=== PATIENT | female | born 1960 | race Two or more races ===

== ENCOUNTER → 2018-04-04 06:42 | Outpatient (CLI) | payer OTHER | END | disposition home or self-care (01) | LOC: LAB 06:42 | DX: I11.0 Hypertensive heart disease with heart failure (principal); D53.8 Other specified nutritional anemias; N39.0 Urinary tract infection, site not specified; E11.9 Type 2 diabetes mellitus without complications; E04.2 Nontoxic multinodular goiter; N36.2 Urethral caruncle ==

== ENCOUNTER 2018-04-15 07:11 | Outpatient (CLI) | payer OTHER | END 2018-04-15 07:25 | disposition home or self-care (01) | LOC: SONOGRAMA 07:11 → MAMO-SONO 08:15 | DX: E04.1 Nontoxic single thyroid nodule (principal) ==

== ENCOUNTER 2018-09-05 08:29 | Outpatient (CLI) | payer OTHER | END 2018-09-05 08:36 | disposition home or self-care (01) | LOC: LAB 08:29 | DX: E04.0 Nontoxic diffuse goiter (principal); E11.9 Type 2 diabetes mellitus without complications; E55.9 Vitamin D deficiency, unspecified ==

== ENCOUNTER 2019-02-27 07:26 | Outpatient (CLI) | payer OTHER | END 2019-02-27 08:05 | disposition home or self-care (01) | LOC: LAB 07:26 | DX: N39.0 Urinary tract infection, site not specified (principal); E78.2 Mixed hyperlipidemia; E11.9 Type 2 diabetes mellitus without complications; D53.8 Other specified nutritional anemias; I11.0 Hypertensive heart disease with heart failure; E04.0 Nontoxic diffuse goiter ==

== ENCOUNTER → 2019-02-28 | Outpatient (CLI) | payer OTHER | END | disposition home or self-care (01) | LOC: SONOGRAMA 08:17 | DX: E04.1 Nontoxic single thyroid nodule (principal) ==

== ENCOUNTER 2019-03-06 11:37 | Outpatient (CLI) | payer OTHER | END 2019-03-06 17:00 | disposition home or self-care (01) | LOC: TOM 11:37 | DX: N28.1 Cyst of kidney, acquired (principal); N18.1 Chronic kidney disease, stage 1; Z12.9 Encounter for screening for malignant neoplasm, site unspecified ==

== ENCOUNTER 2020-07-15 06:38 | Outpatient (CLI) | payer OTHER | END 2020-07-15 06:47 | disposition home or self-care (01) | LOC: LAB 06:38 | PROVIDERS: ATTEND Internal Medicine Endocrinology, Diabetes & Metabolism | DX: D53.8 Other specified nutritional anemias (principal); N39.0 Urinary tract infection, site not specified; I11.0 Hypertensive heart disease with heart failure; E78.2 Mixed hyperlipidemia; E04.8 Other specified nontoxic goiter; E11.9 Type 2 diabetes mellitus without complications ==

== ENCOUNTER 2020-09-04 06:28 | Outpatient (CLI) | payer OTHER | END 2020-09-04 15:00 | disposition home or self-care (01) | LOC: LAB 06:28 | PROVIDERS: ATTEND Specialist/Technologist, Other Nephrology | DX: D63.1 Anemia in chronic kidney disease (principal); E11.21 Type 2 diabetes mellitus with diabetic nephropathy; N30.00 Acute cystitis without hematuria; E03.8 Other specified hypothyroidism ==

== ENCOUNTER 2020-09-04 07:17 | Outpatient (CLI) | payer OTHER | END 2020-09-04 07:26 | disposition home or self-care (01) | LOC: SONOGRAMA 07:17 | PROVIDERS: ATTEND Specialist/Technologist, Other Nephrology | DX: R10.84 Generalized abdominal pain (principal); N18.30 Chronic kidney disease, stage 3 unspecified; R31.29 Other microscopic hematuria ==

== ENCOUNTER 2020-09-07 07:47 | Outpatient (CLI) | payer OTHER | END 2020-09-07 07:50 | disposition home or self-care (01) | LOC: LAB 07:47 | PROVIDERS: ATTEND Specialist/Technologist, Other Nephrology | DX: E03.8 Other specified hypothyroidism (principal); E11.21 Type 2 diabetes mellitus with diabetic nephropathy; D63.1 Anemia in chronic kidney disease; N30.00 Acute cystitis without hematuria ==

== ENCOUNTER → 2021-02-11 07:39 | Outpatient (CLI) | payer OTHER | END | disposition home or self-care (01) | LOC: LAB 07:39 | PROVIDERS: ATTEND Internal Medicine Endocrinology, Diabetes & Metabolism | DX: I11.0 Hypertensive heart disease with heart failure (principal); R73.03 Prediabetes; E11.9 Type 2 diabetes mellitus without complications; E04.8 Other specified nontoxic goiter; E78.2 Mixed hyperlipidemia; N39.0 Urinary tract infection, site not specified ==

== ENCOUNTER 2021-02-11 08:13 | Outpatient (CLI) | payer OTHER | END 2021-02-11 08:23 | disposition home or self-care (01) | LOC: SONOGRAMA 08:13 → MAMO-SONO 08:15 → SONOGRAMA 08:23 | DX: E04.1 Nontoxic single thyroid nodule (principal) ==

== ENCOUNTER → 2021-03-21 07:24 | Outpatient (CLI) | payer OTHER | END | disposition home or self-care (01) | LOC: LAB 07:24 | PROVIDERS: ATTEND Specialist/Technologist, Other Nephrology | DX: E11.21 Type 2 diabetes mellitus with diabetic nephropathy (principal); D63.1 Anemia in chronic kidney disease; N30.00 Acute cystitis without hematuria; E03.9 Hypothyroidism, unspecified ==

== ENCOUNTER 2021-03-21 08:08 | Outpatient (CLI) | payer OTHER | END 2021-03-21 08:17 | disposition home or self-care (01) | LOC: SONOGRAMA 08:08 → MAMO-SONO 08:30 | PROVIDERS: ATTEND Specialist/Technologist, Other Nephrology | DX: N19 Unspecified kidney failure (principal); N13.9 Obstructive and reflux uropathy, unspecified ==

== ENCOUNTER 2022-03-30 07:41 | Outpatient (CLI) | payer OTHER | END 2022-03-30 07:42 | disposition home or self-care (01) | LOC: LAB 07:41 | PROVIDERS: ATTEND Internal Medicine Endocrinology, Diabetes & Metabolism | DX: I11.0 Hypertensive heart disease with heart failure (principal); D53.9 Nutritional anemia, unspecified; E78.2 Mixed hyperlipidemia; E11.9 Type 2 diabetes mellitus without complications; E04.9 Nontoxic goiter, unspecified ==

== ENCOUNTER 2022-05-25 12:11 | Outpatient (CLI) | payer OTHER | END 2022-05-25 12:15 | disposition home or self-care (01) | LOC: SONOGRAMA 12:11 | PROVIDERS: ATTEND Specialist/Technologist, Other Nephrology | DX: N18.1 Chronic kidney disease, stage 1 (principal); N18.30 Chronic kidney disease, stage 3 unspecified; Z12.9 Encounter for screening for malignant neoplasm, site unspecified ==